=== PATIENT | female | born 1990 | race Caucasian/White ===

== ENCOUNTER 2019-05-15 22:51 | Emergency (ER) | payer BC ==
[2019-05-15 23:01] VITALS: BP 133/79; PULSE 98; TEMP 97.7; BMI 20.5
--- NOTE | 2019-05-15 23:24 | PDOC ---
Attending Attestation - Resident Resident Name: Jaime Arango - ED Attending Attestation I have performed the following: I have examined & evaluated the patient, The case was reviewed & discussed with the resident, I agree w/resident's findings & plan - HPI HPI: 05/16/19 00:18 Pt comes with congestion and irritation of nasal passages as well facial pain and forehead pain. She has no dental infection or dental procedures. - Physicial Exam PE: 05/16/19 22:39 Heart and lungs normal afebrile abd soft NT ND HEENT normal, except pt is congested and has facial pain over her sinuses. - Medical Decision Making 05/16/19 22:39 Home witgh sudafed and antibiotics. Follwo with ENT
[2019-05-16] MEDS ORDERED: AMOX TR/POT CLAV 875MG/125MG TABLETS (FP) PO ONE (00:19)
--- NOTE | 2019-05-16 00:22 | PDOC ---
History of Present Illness - General Chief Complaint: Pain Stated Complaint: PAIN Time Seen by Provider: 05/15/19 23:23 History Source: Patient Exam Limitations: Language Barrier (Phone int used) - History of Present Illness Initial Comments: 05/16/19 00:18 Patient is a 29F with no significant PMH here today complaining of facial pain for the past three days. Patient states the pain radiates to her teeth, ears, and eyes. Endorses subjective fever. Patient states that she's had a cold for the past 2 weeks and the pain worsened today. Denies chest pain and shortness of breath. LMP 7 days ago. Past History - Past Medical History Allergies/Adverse Reactions: Allergies Allergy/AdvReac Type Severity Reaction Status Date / Time No Known Allergies Allergy Verified 05/15/19 22:59 Home Medications: Ambulatory Orders Amoxicillin/Potassium Clav [Augmentin 875-125 Tablet] 1 each PO BID #20 tablet 05/16/19 Cetirizine HCl 10 mg PO DAILY #30 tablet 05/16/19 - Psycho Social/Smoking Cessation Hx Smoking History: Never smoked Have you smoked in the past 12 months: No Information on smoking cessation initiated: No Hx Alcohol Use: No Drug/Substance Use Hx: No Review of Systems - Review of Systems Able to Perform ROS?: Yes Comments:: 05/16/19 00:20 GENERAL/CONSTITUTIONAL: No fever or chills. No weakness. HEAD, EYES, EARS, NOSE AND THROAT: No change in vision. +ear pain +sinus pain. No sore throat. CARDIOVASCULAR: No chest pain or shortness of breath RESPIRATORY: No cough, wheezing, or hemoptysis. GASTROINTESTINAL: No nausea, vomiting, diarrhea or constipation. GENITOURINARY: No dysuria, frequency, or change in urination. MUSCULOSKELETAL: No joint or muscle swelling or pain. No neck or back pain. SKIN: No rash NEUROLOGIC: No headache, vertigo, loss of consciousness, or change in strength/ sensation. ENDOCRINE: No increased thirst. No abnormal weight change ALLERGIC/IMMUNOLOGIC: No hives or skin allergy. *Physical Exam - Vital Signs Last Vital Signs Temp Pulse Resp BP Pulse Ox 97.7 F 98 H 18 133/79 100 05/15/19 23:00 05/15/19 23:00 05/15/19 23:00 05/15/19 23:00 05/15/19 23:00 - Physical Exam 05/16/19 00:21 GENERAL: Awake, alert, and fully oriented, in no acute distress HEAD: No signs of trauma, normocephalic, atraumatic EYES: PERRLA, EOMI, sclera anicteric, conjunctiva clear ENT: Auricles normal inspection, hearing grossly normal, nares patent, oropharynx clear without exudates. Erythematous nasal turbinates, tender maxillary sinuses, TMs clear with no erythema. NECK: Normal ROM, supple, no lymphadenopathy, JVD, or masses LUNGS: No distress, speaks full sentences, clear to auscultation bilaterally HEART: Regular rate and rhythm, normal S1 and S2, no murmurs, rubs or gallops, peripheral pulses normal and equal bilaterally. ABDOMEN: Soft, nontender, normoactive bowel sounds. No guarding, no rebound. No masses EXTREMITIES: Normal inspection, Normal range of motion, no edema. No clubbing or cyanosis. NEUROLOGICAL: Cranial nerves II through XII grossly intact. Normal speech, normal gait, no focal sensorimotor deficits SKIN: Warm, Dry, normal turgor, no rashes or lesions noted. Medical Decision Making - Medical Decision Making 05/16/19 00:22 Patient is 29F here today with sinusitis. Vitals normal and stable. Will treat with cetirizine and augmentin. Discharge - Discharge Information Problems reviewed: Yes Clinical Impression/Diagnosis: Sinusitis Condition: Good Disposition: HOME - Admission No - Follow up/Referral Referrals: Amish Antoine MD [Staff Physician] - [facility] [place] [facility] [place] [Provider Group] - Patient Discharge Instructions Patient Printed Discharge Instructions: DI for Sinusitis Additional Instructions: Please take the antibiotic and antihistamine as prescribed. Please follow up with the ENT doctor listed below. Please follow up with your primary care doctor in the next week. If you do not have one, a primary care doctor is listed below. [place] el antibitico y el antihistamnico segn lo prescrito. Luz Elena un seguimiento con el otorrinolaringlogo que se detalla a continuacin. Luz Elena un seguimiento con sagastume mdico de atencin primaria la prxima semana. Si no tiene marko, a continuacin se enumera un mdico de atencin primaria. Print Language: OCCITAN - Post Discharge Activity
[2019-05-16] MEDS ORDERED: AMOX TR/POT CLAV 875MG/125MG TABLETS (FP) ONE (00:29)
== END 2019-05-16 00:45 | disposition home or self-care (01) ==
LOC: JER 22:51
DX: J32.9 Chronic sinusitis, unspecified (principal)
CPT/HCPCS: 99281-25